=== PATIENT | male | born 1955 | race Caucasian/White ===

== ENCOUNTER → 2018-10-03 09:33 | Outpatient (CLI) | payer MEDICARE, BC, SELFPAY ==
--- NOTE | 2018-10-03 | DI.US.S_ITS ---
PROCEDURE: US ABDOMEN COMPLETE INDICATIONS: ABNORMAL RESULTS OF LIVER TECHNIQUE: Real-time scanning was performed of the abdominal and retroperitoneal organs, with image documentation. COMPARISON: None. FINDINGS: Liver: The liver demonstrates normal size. The liver demonstrates generalized increased echogenicity. This decreases ultrasound sensitivity for detection of hepatic masses. There is apparent focal fatty sparing seen adjacent to the gallbladder. Gallbladder: A non-mobile stone can be seen in the gallbladder neck that measures 1.2 cm. A polyp versus an adherent stone can be seen on the posterior wall of the gallbladder that measures 0.5 cm. The gallbladder wall is not thickened, measuring 3 mm or less. No specific pericholecystic fluid is seen. The sonographic Plascencia sign is negative. Biliary ducts: Intrahepatic bile ducts are non-dilated. Extrahepatic bile duct caliber measures 5 mm. Normal is 6-7 mm or less in diameter, or 10 mm or less post-cholecystectomy. Pancreas: Visualized portions of the pancreas are sonographically normal. Spleen: Spleen is normal in size and homogeneous in echotexture. Kidneys: Kidneys are normal in size and echotexture. Right kidney measures 12.8 cm long; left kidney measures 13.1 cm long. No hydronephrosis or nephrolithiasis. No solid masses. The renal cortex measures within normal limits for thickness. Aorta: Visualized aorta is normal in caliber at less than 3 cm. Iliacs: Proximal common iliac arteries are normal in caliber at less than 2.5 cm. IVC: Intrahepatic inferior vena cava is patent. Miscellaneous: No free abdominal fluid. IMPRESSION: Gallstones, without additional sonographic signs of cholecystitis. No biliary dilatation. The liver demonstrates increased echogenicity. This finding is nonspecific, yet it is attributed to fatty infiltration, with fatty sparing adjacent to the gallbladder fossa. Dictated by: Russ Andres M.D. on 10/03/2018 at 9:37 Approved by: Russ Andres M.D. on 10/03/2018 at 9:40
== END ==
PROVIDERS: Visit Provider Internal Medicine
DX: K80.80 Other cholelithiasis without obstruction (principal); K76.0 Fatty (change of) liver, not elsewhere classified; R79.89 Other specified abnormal findings of blood chemistry
CPT/HCPCS: 76700

== ENCOUNTER → 2021-01-18 19:10 | Outpatient (ROUT) | payer MEDICARE, BC, SELFPAY ==
[2021-01-18 19:32] LABS: Aspartate Aminotransferase 54 IU/L (17-59); BUN Creatinine Ratio 17.6 (6-22); Blood Urea Nitrogen 19 mg/dL (9-20); Calcium 11.5 mg/dL (8.4-10.2); Carbon Dioxide 29 mmol/L (22-32); Chloride 99 mmol/L (98-107); Cholesterol 205 mg/dL (140-199); Estimated Glomerular Filt Rate > 60.0 mL/min (>60); Glucose 104 mg/dL (80-110); HDL Cholesterol 56 mg/dL (40-60); HEMOLYSIS 26 (0-50); Potassium 4.2 mmol/L (3.4-5.1); Sodium 138 mmol/L (137-145); Triglycerides 487 mg/dL (35-150)
[2021-01-18 19:34] LABS: Hemoglobin A1C% w Est Avg Glu 6.4 % (4.0-6.0)
== END ==
PROVIDERS: Visit Provider Internal Medicine
DX: C61 Malignant neoplasm of prostate (principal); I10 Essential (primary) hypertension; E78.2 Mixed hyperlipidemia; R73.01 Impaired fasting glucose
CPT/HCPCS: 80048; 80061; 83036; 84153; 84450

== ENCOUNTER 2021-11-23 15:19 | Emergency (ER) | payer MEDICARE, BC, SELFPAY ==
[2021-11-23] VITALS (7 sets, daily range): BP systolic 133–142; BP diastolic 72–84; PULSE 60–70; RESP 12–22; TEMP 36.9; O2SAT 94–96
--- NOTE | 2021-11-23 15:23 | DI.RAD.S_ITS ---
PROCEDURE: XR CHEST 1V INDICATIONS: chest pain TECHNIQUE: One view of the chest was acquired. COMPARISON: None. FINDINGS: Surgical changes and devices: None. Lungs and pleura: Lungs are clear. No pleural effusions or pneumothorax. Mediastinum: Mediastinal contours appear normal. Heart size is normal. Bones and chest wall: No suspicious bony lesions. Overlying soft tissues appear unremarkable. IMPRESSION: No acute cardiopulmonary findings Approved by: Bharathi Salgado M.D. on 11/23/2021 at 14:45
[2021-11-23 15:46] LABS: Add Manual Diff / Slide Review NO; Basophils Absolute Auto 100 /uL (0-100); Basophils Percent Auto 1.3 % (0-2); Eosinophils Absolute Auto 200 /uL (0-450); Eosinophils Percent Auto 2.8 % (2-4); Hematocrit 48.4 % (41-53); Hemoglobin 16.7 g/dL (13.5-17.5); Lymphocytes Absolute Auto 1500 /uL (1100-4500); Lymphocytes Percent Auto 27.4 % (25-40); Mean Corpuscular HGB Conc 34.5 % (30-36); Mean Corpuscular Hemoglobin 28.9 PG (26-34); Monocytes Absolute Auto 400 /uL (0-900); Monocytes Percent Auto 7.7 % (3-14); Neutrophils Absolute Auto 3300 /uL (1500-7000); Neutrophils Percent Auto 60.8 % (50-75); Platelet Count 165 X10^3/uL (150-400); Red Blood Cell Count 5.77 X10^6/uL (4.5-5.9); Red Cell Distribution Width 13.8 % (11.6-14.8); White Blood Cell Count 5.4 X10^3/uL (4.5-11.0)
[2021-11-23 16:02] LABS: Alanine Aminotransferase 114 IU/L (<50); Albumin 4.9 g/dL (3.5-5.0); Albumin Globulin Ratio 1.9 (1.0-2.8); Alkaline Phosphatase 49 U/L (38-126); Aspartate Aminotransferase 83 IU/L (17-59); BUN Creatinine Ratio 22.2 (6-22); Bilirubin Total 0.6 mg/dL (0.2-1.3); Blood Urea Nitrogen 24 mg/dL (9-20); Calcium 9.5 mg/dL (8.4-10.2); Carbon Dioxide 25 mmol/L (22-32); Chloride 99 mmol/L (98-107); Creatine Kinase 107 U/L (55-170); Estimated Glomerular Filt Rate > 60.0 mL/min (>60); Globulin 2.6 g/dL (1.7-4.1); Glucose 139 mg/dL (80-110); HEMOLYSIS 16 (0-50); Lipase 423 U/L (23-300); Potassium 3.7 mmol/L (3.4-5.1); Sodium 139 mmol/L (137-145); Total Protein 7.5 g/dL (6.3-8.2)
[2021-11-23 16:14] LABS: Troponin I < 0.012 ng/mL (0.01-0.034)
[2021-11-23 16:17] LABS: Creatine Kinase MB 1.02 ng/mL (<2.37)
--- NOTE | 2021-11-23 16:49 | ED.CHESTPAIN ---
HPI - Chest Pain General Chief Complaint: Chest Pain Stated Complaint: chest pain Time Seen by Provider: 11/23/21 16:49 Source: patient Mode of arrival: Ambulatory History of Present Illness HPI narrative: 66M nonsmoker with history of hypertension, hyperlipidemia and diabetes presents with a chief complaint of ongoing brief episodes of left upper anterior chest pain which have been going on for many months. He has had multiple evaluations without any significant findings. 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 and incoordination with primary care provider he is set up to have a stress test and the next few weeks. He is here today because he wanted to be sure that this episode of chest pain which had resolved long before he arrived lasted 15-20 seconds was not something significant. He denies any obvious provocation or palliation. He denies any radiation. He states that sharp and stabbing and seemed to go a cardiac likely, just like prior episodes. He denies associated symptoms such as dizziness, weakness, lightheadedness. He has had no fever or chills nor nausea, vomiting or diarrhea. Denies recent travel, history of blood clot or known cancer. Related Data Home Medications Medication Instructions Recorded Confirmed lisinopril 20 1 tab PO BID 04/27/21 11/15/21 mg-hydrochlorothiazide 25 mg tablet metformin PO BID 04/27/21 11/15/21 rosuvastatin 5 mg tablet 5 mg PO DAILY 04/27/21 11/15/21 DreamStation 2 11/15/21 11/15/21 thyroid (pork) 90 mg tablet 90 mg PO DAILY 11/15/21 11/15/21 ([facility] Thyroid) Allergies Allergy/AdvReac Type Severity Reaction Status Date / Time BANANAS Allergy Intermediate RAW Uncoded 04/27/21 09:14 MOUTH, ITCHING CARROTS Allergy Intermediate RAW Uncoded 04/27/21 09:14 MOUTH, ITCHING MELON Allergy Intermediate RAW Uncoded 04/27/21 09:14 MOUTH,ITCHING Review of Systems Review of Systems Narrative: GENERAL: Denies chills, fatigue, malaise, fever, sweats. HEENT: Denies sinus pain, ear pain, sore throat, difficulty swallowing, dizziness. RESPIRATORY: Denies dyspnea, cough, wheezing, hemoptysis, sputum. CARDIOVASCULAR: See HPI GASTROINTESTINAL: Denies nausea, vomiting, abdominal pain, diarrhea, constipation, melena. : Denies dysuria, frequency, incontinence, hematuria, urinary retention. MUSCULOSKELETAL: denies weakness, joint pain, or bony pain SKIN: Denies rash, skin lesions, or other NEUROLOGIC: Denies weakness, headache, numbness, change in speech, confusion, seizures, incoordination. PSYCHIATRIC: No concerning psychosocial issues. 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 Well-developed patient, in mild distress. HEAD: Atraumatic. Normocephalic. EYES: Pupils equal round and reactive. Extraocular motions intact. No scleral icterus. No injection or drainage. ENT: Nose without bleeding, purulent drainage. Throat without erythema, tonsillar hypertrophy or exudate. Airway patent. NECK: Trachea midline. Non tender CARDIOVASCULAR: Regular rate and rhythm without murmurs, gallops, or rubs. RESPIRATORY: Clear to auscultation. Breath sounds equal bilaterally. No wheezes, rales, or rhonchi. GASTROINTESTINAL: Abdomen soft, non-tender, nondistended. EXTREMITIES: No edema or joint tenderness. BACK: Nontender without deformity or crepitance. No flank tenderness. NEURO: AOx3. SKIN: No rash or erythema of visible areas Initial Vital Signs Initial Vital Signs: Vital Signs Temperature 98.5 F 11/23/21 15:20 Pulse Rate 68 11/23/21 15:20 Respiratory Rate 22 11/23/21 15:20 Blood Pressure 134/84 11/23/21 15:20 Pulse Oximetry 96 11/23/21 15:20 Course Orders Ordered: ED Orders 11/23/21 15:23 XR chest 1V Stat EKG-12 Lead Stat 11/23/21 15:33 Complete Blood Count AUTO DIFF Stat Comprehensive Metabolic Panel Stat Lipase Stat Magnesium Stat Troponin & CK Cardiac Panel Stat 11/23/21 18:03 D Dimer Stat Vital Signs Vital signs: Vital Signs - 8 hr 11/23/21 15:20 11/23/21 16:50 11/23/21 16:53 Temperature 98.5 F Pulse Rate 68 70 65 Respiratory Rate 22 16 20 Blood Pressure 134/84 137/79 137/79 Pulse Oximetry 96 96 95 11/23/21 17:00 11/23/21 17:30 Temperature Pulse Rate 67 65 Respiratory Rate 19 12 Blood Pressure 142/84 H 134/73 Pulse Oximetry 96 96 MDM - Chest Pain Lab Data Result diagrams: 11/23/21 15:33 11/23/21 15:33 Labs: Lab Results 11/23/21 11/23/21 Range/Units 15:33 15:33 WBC 5.4 (4.5-11.0) X10^3/uL RBC 5.77 (4.5-5.9) X10^6/uL Hgb 16.7 (13.5-17.5) g/dL Hct 48.4 (41-53) % MCV 84.0 (80-100) fL MCH 28.9 (26-34) PG MCHC 34.5 (30-36) % RDW 13.8 (11.6-14.8) % Plt Count 165 (150-400) X10^3/uL Neut % (Auto) 60.8 (50-75) % Lymph % (Auto) 27.4 (25-40) % [place] % (Auto) 7.7 (3-14) % Eos % (Auto) 2.8 (2-4) % Baso % (Auto) 1.3 (0-2) % Neut # (Auto) 3300 (9160-8601) /uL Lymph # (Auto) 1500 (3843-3237) /uL [place] # (Auto) 400 (0-900) /uL Eos # (Auto) 200 (0-450) /uL Baso # (Auto) 100 (0-100) /uL Sodium 139 (137-145) mmol/L Potassium 3.7 (3.4-5.1) mmol/L Chloride 99 (98-107) mmol/L Carbon Dioxide 25 (22-32) mmol/L BUN 24 H (9-20) mg/dL Creatinine 1.08 (0.66-1.25) mg/dL Estimated GFR > 60.0 (>60) mL/min BUN/Creatinine Ratio 22.2 H (6-22) Glucose 139 H (80-110) mg/dL Calcium 9.5 (8.4-10.2) mg/dL Magnesium 2.0 (1.6-2.3) mg/dL Total Bilirubin 0.6 (0.2-1.3) mg/dL AST 83 H (17-59) IU/L ALT 114 H (<50) IU/L Alkaline Phosphatase 49 (38-126) U/L Total Creatine Kinase 107 (55-170) U/L CK-MB (CK-2) 1.02 (<2.37) ng/mL CK-MB (CK-2) Rel Index 1.0 L (1.5-5.0) % Troponin I < 0.012 (0.01-0.034) ng/mL Total Protein 7.5 (6.3-8.2) g/dL Albumin 4.9 (3.5-5.0) g/dL Globulin 2.6 (1.7-4.1) g/dL Albumin/Globulin Ratio 1.9 (1.0-2.8) Lipase 423 H (23-300) U/L Imaging Data Chest x-ray: Radiologist's Impression: [address] [address] XRay Report Signed Patient: Percy Karimi MR#: [id number] : 1955 Acct:[id number] Age/Sex: 66 / M Date of Service: 11/23/21 Loc: ED Accession Number: [id number] ?? Procedure: XR chest 1V Ordering Provider: Martell Ding D.O. PROCEDURE:? XR CHEST 1V ? INDICATIONS:? chest pain ? TECHNIQUE:? One view of the chest was acquired.? ? COMPARISON:? None. ? FINDINGS:? ? Surgical changes and devices:? None.? ? Lungs and pleura:? Lungs are clear.? No pleural effusions or pneumothorax.? ? Mediastinum:? Mediastinal contours appear normal.? Heart size is normal.? ? Bones and chest wall:? No suspicious bony lesions.? Overlying soft tissues appear unremarkable.? ? IMPRESSION:? No acute cardiopulmonary findings ? ? ? Approved by: Bharathi Salgado M.D. on 11/23/2021 at 14:45? MDM Narrative Medical decision making narrative: Multiple causes of chest pain considered including CO, PE, pneumothorax, pneumonia, aortic dissection, and pleurisy. Patient reports no radiation, no diaphoresis, no provocation with exertion, and no vomiting Findings and discharge diagnosis discussed with patient/family followed by verbalization of understanding Return precautions discussed with patient/family whom verbalize understanding. Discharge Plan Departure Patient Disposition: Home Clinical Impression: Atypical chest pain Instructions: DI for Atypical Chest Pain Activity Restrictions/Additional Instructions: *You have been diagnosed with [atypical chest pain. Your history and physical exam are very reassuring. As we discussed there are no ischemic findings on your EKG, labs are reassuring and there is no suggestion of blood clot. *What to do: *Please continue to take your regular medications as directed. [ ] New medication prescriptions sent to your pharmacy: [ ] [ ] New medication written as a paper prescription [ x] No new medications given *Please follow up with your primary care provider in 2-3 days, call for an appointment. Let them know you were seen in the Emergency Department and that we ask that you be seen in follow up. We will electronically transmit a record of today's note if your PCP is in our system *If you do not have a primary care provider please contact the [facility] Resource line at [phone]. They will ask some questions about your medical history and help get you set up with a doctor in the community. *Return to Emergency Department if you should have any new, worsening or concerning symptoms, such as [fever greater than 101 F, shaking chills, worsening pain, persistent vomiting or other bothersome symptoms] Prescriptions: No Action thyroid (pork) [[place] Thyroid] 90 mg tablet 90 mg PO DAILY 0RF (DME) DreamStation 2 See Rx Instructions .ROUTE .MEDSUPPLY 0RF Rx Instructions: CPAP Min: 6 Max: 14 DME: [place] rosuvastatin 5 mg tablet 5 mg PO DAILY 0RF metformin PO BID 0RF lisinopril-hydrochlorothiazide 20-25 mg tablet 1 tab PO BID 0RF
[2021-11-23 18:41] LABS: D Dimer < 200 ng/mL (<230)
== END 2021-11-23 18:50 | disposition home or self-care (01) ==
PROVIDERS: Emergency Provider Emergency Medicine
DX: R07.89 Other chest pain (principal)
CPT/HCPCS: 36415; 71045; 80053; 82550; 82553; 83690; 83735; 84484; 85025; 85379; 93005; 93010; 99283; 99284

== ENCOUNTER → 2022-02-01 08:33 | Outpatient (CLI) | payer MEDICARE, OTHER, SELFPAY ==
[2022-02-01 11:10] LABS: BUN Creatinine Ratio 16.3 (6-22); Blood Urea Nitrogen 16 mg/dL (9-20); Calcium 9.1 mg/dL (8.4-10.2); Carbon Dioxide 25 mmol/L (22-32); Chloride 105 mmol/L (98-107); Estimated Glomerular Filt Rate > 60 mL/min (>60); Glucose 134 mg/dL (80-110); HEMOLYSIS < 15 (0-50); Potassium 3.6 mmol/L (3.4-5.1); Sodium 138 mmol/L (137-145)
== END ==
PROVIDERS: PCP Internal Medicine; Referring Provider Urology; Visit Provider Urology
DX: C61 Malignant neoplasm of prostate (principal); R97.20 Elevated prostate specific antigen [PSA]
CPT/HCPCS: 36415; 80048

== ENCOUNTER → 2022-02-02 08:28 | Outpatient (CLI) | payer MEDICARE, OTHER, SELFPAY ==
--- NOTE | 2022-02-02 08:30 | DI.MRI.S_ITS ---
PROCEDURE: MR PELIS WO/W CON INDICATIONS: Prostate cancer rising PSA TECHNIQUE: Coronal HASTE, axial T1 FSE with fat saturation, 3-plane nonbreath-hold T2 FSE. After the administration of contrast, dynamic axial, delayed axial and coronal VIBE or 2-D FLASH with fat saturation through the pelvis. Optional diffusion weighted imaging and ADC may be performed. COMPARISON: [facility], CT, CT ABDOMEN PELVIS WO/W CON, 02/02/2022, 8:38. FINDINGS: Image quality: Diffusion weighted and dynamic contrast enhanced images are diagnostic. Prostate: Gland size is 5.3 x 4.9 x 4.3 cm; ellipsoid gland volume is 58 mL. No significant foci of intrinsic T1 hyperintensity to suggest hemorrhage. Multiple BPH nodules. Lesion size(s): Lesion 1: 1.2 x 1.1 cm, (11/23) Lesion location(s) (sector): Lesion 1: Left peripheral zone mid gland Lesion description: Lesion 1: Oval T2 weighted imaging (T2WI) morphology score: Lesion 1: 4 Diffusion weighted imaging (DWI) morphology score: Lesion 1: 4 Dynamic contrast enhancement (DCE): Lesion 1: Present Lesion PI-RADS score: Lesion 1: PI-RADS 4 Genitourinary system: Bladder wall thickness is normal. Distal ureters are non distended. Bowel and peritoneum: No pathologic free pelvic fluid. Inferior colon and small bowel loops are normal in caliber. Nodes and vessels: No pelvic or inguinal adenopathy by size criteria. Iliac vessels are normal in caliber. Soft tissues: No inguinal hernias. Bones: Marrow demonstrates normal overall signal, without lesions to suggest metastases. IMPRESSION: 1. Prostatomegaly with multiple BPH nodules. 2. Left peripheral zone mid gland observation measuring 1.2 cm. PI-RADS 4. 3. No enlarged lymph nodes. Dictated by: Milo Deluca M.D. on 02/02/2022 at 10:54 Approved by: Milo Deluca M.D. on 02/02/2022 at 11:04
--- NOTE | 2022-02-02 08:38 | DI.CT.S_ITS ---
PROCEDURE: CT ABDOMEN PELVIS WO/W CON INDICATIONS: Prostate cancer rising PSA TECHNIQUE: After the administration of oral contrast, 5 mm thick sections acquired from the diaphragms to the iliac crests. After the administration of intravenous contrast, 5 mm thick sections acquired from the diaphragms to the symphysis. 5 mm thick coronal and sagittal reformats were acquired. For radiation dose reduction, the following was used: automated exposure control, adjustment of mA and/or kV according to patient size. COMPARISON: [facility], , MR PELVIS WO/W CON, 02/02/2022, 9:11. FINDINGS: Lower thorax: The lung bases are clear. Heart size normal. No hiatal hernia. Dense coronary artery vascular calcification present. Liver: Normal in size and attenuation. No contour deformity present. Biliary system: Calcified stone noted layering dependently in the gallbladder lumen. No intra or extrahepatic bile duct dilatation. Pancreas: Unremarkable without mass or inflammation evident. Spleen: The spleen is enlarged at 14.5 cm. No intrinsic mass lesion. Adrenals: Normal morphology and density. Reproductive system: Prostatic hypertrophy elevates the bladder floor. Urinary system: Normal renal size and attenuation. No renal calculi, hydronephrosis, or solid mass present. Urinary bladder unremarkable. Gastrointestinal system: The bowel is unremarkable without evidence of bowel obstruction or inflammation. The stomach appears unremarkable. Appendix: No findings to suggest acute appendicitis. Peritoneal spaces: No mesenteric or retroperitoneal adenopathy. No free air. No free fluid. Vasculature: Aortic atherosclerotic vascular calcification noted without evidence of aneurysm. Abdominal wall: Periumbilical ventral hernia contains fat without bowel involvement Musculoskeletal: Normal bone mineralization. Degenerative disc disease and arthropathy noted in lower lumbar spine. No lytic or blastic osseous lesion No acute fractures. IMPRESSION: 1. Prostatic hypertrophy without evidence metastatic disease. 2. Cholelithiasis without CT evidence of acute cholecystitis. 3. Incidental splenomegaly, 14.5 cm Approved by: Bharathi Salgado M.D. on 02/02/2022 at 12:26
== END ==
PROVIDERS: PCP Internal Medicine; Referring Provider Urology; Visit Provider Urology
DX: C61 Malignant neoplasm of prostate (principal); R97.20 Elevated prostate specific antigen [PSA]; D40.0 Neoplasm of uncertain behavior of prostate; N40.0 Benign prostatic hyperplasia without lower urinary tract symptoms; K80.20 Calculus of gallbladder without cholecystitis without obstruction; R16.1 Splenomegaly, not elsewhere classified
CPT/HCPCS: 72197; 74178; A9579

== ENCOUNTER → 2022-02-22 10:52 | Outpatient (CLI) | payer MEDICARE, OTHER, SELFPAY ==
--- NOTE | 2022-02-22 10:54 | DI.NM.S_ITS ---
PROCEDURE: NM BONE SCAN WHOLE BODY RADIOPHARMACEUTICAL: 20.2 mCi Tc-99m MDP IV. INDICATIONS: Prostate cancer rising PSA TECHNIQUE: Delayed whole-body scintigrams were obtained approximately 3-4 hours after intravenous injection of radiotracer. Anterior and posterior views were acquired from vertex to feet. Additional left and right oblique views of the pelvis were obtained. COMPARISON: [facility], MR, MR PELVIS WO/W CON, 02/02/2022, 9:11. [facility], CT, CT ABDOMEN PELVIS WO/W CON, 02/02/2022, 8:38. FINDINGS: Physiologic uptake is noted within the kidneys and bladder. There is increased uptake at the 1st CMC joints bilaterally suggestive of degenerative change. Photopenia is noted at the right knee consistent with arthroplasty. Mild increased uptake is noted within the shoulder girdles as well as small bones of the feet. Small punctate areas of uptake are noted overlying the visualized portions of the thoracolumbar spine. IMPRESSION: No definitive foci for metastatic disease. Multiple areas of uptake are noted suggestive of degenerative change. Dictated by: Brittany Edwards M.D. on 02/22/2022 at 17:15 Approved by: Brittany Edwards M.D. on 02/22/2022 at 17:16
== END ==
PROVIDERS: PCP Internal Medicine; Referring Provider Urology; Visit Provider Urology
DX: C61 Malignant neoplasm of prostate (principal); R97.20 Elevated prostate specific antigen [PSA]
CPT/HCPCS: 78306; A9503

== ENCOUNTER → 2022-06-08 08:22 | Outpatient (CLI) | payer MEDICARE, OTHER, SELFPAY ==
[2022-06-08 09:51] LABS: Prostate Specific Antigen 8.22 ng/mL (0.10-4.00)
[2022-06-09 07:10] LABS: PSA Free % 21.4 % (.); PSA, Total 8.4 ng/mL (0.0-4.0)
[2022-06-14 17:57] LABS: Dihydrotestosterone 93 ng/dL (.)
[2022-06-15 08:12] LABS: Testosterone Free 16.65 ng/dL (5.00-21.00)
[2022-06-15 14:42] LABS: Estrogen 122 pg/mL (56-213)
== END ==
PROVIDERS: Urology; PCP Internal Medicine; Referring Provider Naturopath; Visit Provider Naturopath
DX: C61 Malignant neoplasm of prostate (principal); R97.20 Elevated prostate specific antigen [PSA]
CPT/HCPCS: 36415; 82642; 82672; 84153; 84154; 84402; 84403

== ENCOUNTER → 2022-07-04 08:12 | Outpatient (CLI) | payer MEDICARE, OTHER, SELFPAY ==
[2022-07-04 10:43] LABS: Testosterone 1010 ng/dL (71.8-623)
== END ==
PROVIDERS: PCP Internal Medicine; Referring Provider Urology; Visit Provider Urology
DX: E29.1 Testicular hypofunction (principal)
CPT/HCPCS: 36415; 84403

== ENCOUNTER → 2022-07-12 08:18 | Outpatient (CLI) | payer MEDICARE, OTHER, SELFPAY ==
[2022-07-12 10:47] LABS: Testosterone 768 ng/dL (71.8-623)
== END ==
PROVIDERS: PCP Internal Medicine; Referring Provider Urology; Visit Provider Urology
DX: C61 Malignant neoplasm of prostate (principal); N52.01 Erectile dysfunction due to arterial insufficiency; R97.20 Elevated prostate specific antigen [PSA]
CPT/HCPCS: 36415; 84403

== ENCOUNTER → 2022-09-16 08:49 | Outpatient (CLI) | payer MEDICARE, OTHER, SELFPAY ==
[2022-09-16 12:13] LABS: Prostate Specific Antigen 8.88 ng/mL (0.10-4.00)
== END ==
PROVIDERS: PCP Internal Medicine; Referring Provider Urology; Visit Provider Urology
DX: C61 Malignant neoplasm of prostate (principal); R97.20 Elevated prostate specific antigen [PSA]
CPT/HCPCS: 84153

== ENCOUNTER → 2022-10-07 08:50 | Outpatient (CLI) | payer MEDICARE, OTHER, SELFPAY ==
[2022-10-07 10:13] LABS: Prolactin 9.2 ng/mL (3.7-17.9)
[2022-10-07 10:16] LABS: Follicle Stimulating Hormone 10.3 mIU/mL; Luteinizing Hormone 5.02 mIU/mL
[2022-10-07 10:30] LABS: Testosterone 814 ng/dL (71.8-623)
[2022-10-07 10:31] LABS: Estradiol, Total 28.5 pg/mL
== END ==
PROVIDERS: PCP Internal Medicine; Referring Provider Urology; Visit Provider Urology
DX: R79.89 Other specified abnormal findings of blood chemistry (principal)
CPT/HCPCS: 36415; 82670; 83001; 83002; 84146; 84403

== ENCOUNTER → 2022-11-15 10:15 | Outpatient (CLI) | payer MEDICARE, OTHER, SELFPAY ==
[2022-11-15 11:27] LABS: Alanine Aminotransferase 90 IU/L (<50); Albumin 4.6 g/dL (3.5-5.0); Albumin Globulin Ratio 1.6 (1.0-2.8); Alkaline Phosphatase 61 U/L (38-126); Aspartate Aminotransferase 56 IU/L (17-59); BUN Creatinine Ratio 19.2 (6-22); Bilirubin Total 0.8 mg/dL (0.2-1.3); Blood Urea Nitrogen 19 mg/dL (9-20); Calcium 9.6 mg/dL (8.4-10.2); Carbon Dioxide 31 mmol/L (22-32); Chloride 97 mmol/L (98-107); Estimated Glomerular Filt Rate > 60 mL/min (>60); Globulin 2.9 g/dL (1.7-4.1); Glucose 139 mg/dL (80-110); HEMOLYSIS < 15 (0-50); Magnesium 1.8 mg/dL (1.6-2.3); Potassium 3.9 mmol/L (3.4-5.1); Sodium 137 mmol/L (137-145); Total Protein 7.5 g/dL (6.3-8.2)
[2022-11-15 11:52] LABS: Thyroid Stimulating Hormone 1.24 uIU/mL (0.47-4.68)
[2022-11-17 08:44] LABS: Cholesterol 278 mg/dL (140-199); HDL Cholesterol 49 mg/dL (40-60); Triglycerides 466 mg/dL (35-150)
[2022-11-18 11:34] LABS: Cholesterol, Total 277 mg/dL (100-199); HDL-Cholesterol 44 mg/dL (>39); HDL-Particle (Total) 41.4 umol/L (>=30.5); LDL Particle 2547 nmol/L (<1000); LDL Size 19.6 nm (>20.5); LDL-Cholsterol 140 mg/dL (0-99); LP-IR Score 72 (<=45); Small LDL- Particle 1780 nmol/L (<=527); Triglycerides 502 mg/dL (0-149)
== END ==
PROVIDERS: PCP Internal Medicine; Referring Provider Specialist; Visit Provider Specialist
DX: I10 Essential (primary) hypertension (principal); E78.2 Mixed hyperlipidemia
CPT/HCPCS: 36415; 80053; 80061; 83704; 83735; 84443

== ENCOUNTER → 2023-01-26 07:51 | Outpatient (CLI) | payer MEDICARE, OTHER, SELFPAY ==
[2023-01-26 09:01] LABS: Prolactin 13.6 ng/mL (3.7-17.9)
[2023-01-26 09:09] LABS: Follicle Stimulating Hormone 12.4 mIU/mL
[2023-01-26 09:16] LABS: Prostate Specific Antigen 9.49 ng/mL (0.10-4.00)
[2023-01-26 09:18] LABS: Testosterone 871 ng/dL (71.8-623)
[2023-01-26 09:25] LABS: Estradiol, Total 42.3 pg/mL
== END ==
PROVIDERS: PCP Internal Medicine; Referring Provider Urology; Visit Provider Urology
DX: R97.20 Elevated prostate specific antigen [PSA] (principal); R79.89 Other specified abnormal findings of blood chemistry; C61 Malignant neoplasm of prostate
CPT/HCPCS: 36415; 82670; 83001; 83002; 84146; 84153; 84403

== ENCOUNTER → 2023-02-02 08:21 | Outpatient (CLI) | payer MEDICARE, OTHER, SELFPAY ==
[2023-02-02 10:43] LABS: Alanine Aminotransferase 87 IU/L (<50); Albumin 4.2 g/dL (3.5-5.0); Albumin Globulin Ratio 1.9 (1.0-2.8); Alkaline Phosphatase 57 U/L (38-126); Aspartate Aminotransferase 58 IU/L (17-59); BUN Creatinine Ratio 19.8 (6-22); Bilirubin Total 0.8 mg/dL (0.2-1.3); Blood Urea Nitrogen 18 mg/dL (9-20); Carbon Dioxide 28 mmol/L (22-32); Chloride 101 mmol/L (98-107); Estimated Glomerular Filt Rate > 60 mL/min (>60); Globulin 2.2 g/dL (1.7-4.1); Glucose 135 mg/dL (80-110); HEMOLYSIS < 15 (0-50); Potassium 3.8 mmol/L (3.4-5.1); Sodium 137 mmol/L (137-145); Total Protein 6.4 g/dL (6.3-8.2)
[2023-02-06 11:52] LABS: Cholesterol, Total 151 mg/dL (100-199); HDL-Cholesterol 48 mg/dL (>39); LDL Particle 763 nmol/L (<1000); LDL Size 19.9 nm (>20.5); LDL-Cholsterol 59 mg/dL (0-99); LP-IR Score 47 (<=45); Small LDL- Particle 496 nmol/L (<=527); Triglycerides 279 mg/dL (0-149)
== END ==
PROVIDERS: PCP Internal Medicine; Referring Provider Specialist; Visit Provider Specialist
DX: E78.2 Mixed hyperlipidemia (principal); R79.89 Other specified abnormal findings of blood chemistry
CPT/HCPCS: 36415; 80053; 80061; 83704

== ENCOUNTER 2023-03-30 08:58 | Day surgery (SDC) | payer MEDICARE, OTHER, SELFPAY ==
--- NOTE | 2023-03-30 | PATH_ITS ---
[facility] Accession Number: [id number] No. of containers..03 Tissue . 01 Material submitted: . PART A: colon - ASCENDING POLYPS PART B: colon - SIGMOID POLYP PART C: rectum - RECTAL POLYP . 01 Diagnosis: A-COLON, ASCENDING, POLYPS BIOPSIES: MULTIPLE FRAGMENTS OF TUBULAR ADENOMA/S - B-COLON, SIGMOID, POLYP BIOPSY: BENIGN COLONIC MUCOSA WITH BENIGN LYMPHOID AGGREGATE. - C-COLON, RECTUM, POLYP BIOPSY: BENIGN COLONIC MUCOSA WITH BENIGN LYMPHOID AGGREGATE AND FOCAL HYPERPLASTIC CHANGES. TXN 04/11/2023 1615 Local . 01 Electronically signed: . Vasquez Lay MD, Pathologist NPI- [id number] . 01 Gross description: . Part A: ASCENDING POLYPS: Received in formalin is 4 fragment(s) of leggett, soft tissue measuring 1.0 x 0.7 x 0.2 cm to 0.2 x 0.2 x 0.1 cm submitted entirely in 1 cassette(s) Part B: SIGMOID POLYP: Received in formalin is 1 fragment(s) of leggett, soft tissue measuring 0.3 x 0.2 x 0.1 cm submitted entirely in 1 cassette(s) Part C: RECTAL POLYP: Received in formalin is 1 fragment(s) of leggett, soft tissue measuring 0.9 x 0.5 x 0.1 cm submitted entirely in 1 cassette(s) /AAY 04/04/2023 0716 Local . 01 Pathologist provided ICD-10: Z12.11 . 01 CPT . 315126, 337328, [id number] Specimen Comment: A courtesy copy of this report has been sent to [facility] Pathology Performed at: 01 [facility] [address] [place] [address] [address], [place], [place] [id number] MD Devan Barr MD Phone: [phone]
[2023-03-30 09:17] VITALS: BP 167/82; PULSE 61; RESP 16; TEMP 36.2; O2SAT 94; BMI 28.7
[2023-03-30] MEDS: LACTATED RINGERS 1,000 ML 84 ML IV (09:31)
--- NOTE | 2023-03-30 10:12 | P.HP_ITS ---
History of Present Illness History of Present Illness Date Patient Seen: 03/30/23 Time Patient Seen: 10:12 Chief complaint: Dx Colonoscopy Narrative: Percy is a 68-year-old man who is here for a colonoscopy. His last 1 was about 6 or 7 years ago. He has had polyps removed. No known family history of colon cancer. 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 Obesity (BMI 30-39.9) (Unknown) Obstructive sleep apnea of adult Prostate cancer Rising PSA level Snoring Surgical History History of knee replacement Family History Grandfather Cancer Grandmother CVA (cerebral vascular accident) Hypertension Sister Diabetes mellitus Father Hyperlipidemia Hypertension Social History marital status: number of children: 2 household members: spouse Smoking Status: Never smoker alcohol intake: never caffeine: Yes Type(s) of exercise: walking frequency: 3-4 times per week duration: 60-90 minutes/day Meds Home Medications and Allergies Home Medications Medication Instructions Recorded Confirmed Type lisinopril 20 1 tab PO BID 04/27/21 02/02/23 History mg-hydrochlorothiazide 25 mg tablet rosuvastatin 5 mg tablet 5 mg PO DAILY 04/27/21 03/30/23 History DreamStation 2 11/15/21 02/02/23 History sodium,potassium,mag sulfates 17.5 See Rx Instructions PO .COMPLEX 02/13/23 Rx gram-3.13 gram-1.6 gram oral soln #354 mL (Suprep Bowel Prep Kit) ezetimibe 10 mg tablet 10 mg PO DAILY 03/30/23 03/30/23 History lisinopril 20 2 tab PO DAILY 03/30/23 03/30/23 History mg-hydrochlorothiazide 12.5 mg tablet metformin 500 mg tablet 500 mg PO DAILY 03/30/23 03/30/23 History thyroid (pork) 60 mg tablet 60 mg PO DAILY 03/30/23 03/30/23 History ([place] Thyroid) Allergies Allergy/AdvReac Type Severity Reaction Status Date / Time atorvastatin [From Lipitor] Allergy Unknown Verified 03/30/23 09:10 simvastatin Allergy Unknown Verified 03/30/23 09:10 Exam Vital Signs (past 8 hours): - 03/30/23 09:17 Temperature 97.1 F L Pulse Rate 61 Respiratory Rate 16 Blood Pressure 167/82 H Pulse Oximetry 94 Oxygen Delivery Method Room Air Oxygen Delivery Method Room Air Const General: healthy appearing Assessment & Plan Assessment and plan (1) Personal history of colonic polyps: Status: Acute Plan We reviewed the risks and benefits of colonoscopy and he would like to proceed.
[2023-03-30 11:24] VITALS: BP 101/54; PULSE 63; RESP 15; TEMP 35.6; O2SAT 97
--- NOTE | 2023-03-30 11:24 | P.OP.COLON_ITS ---
Operative Date/Time/Diagnoses Date of procedure: 03/30/23 Time of procedure: 11:24 Pre-op diagnosis: Colon cancer screening Post-op diagnosis: same Procedure & Clinicians Study performed: Colonoscopy Same procedure as scheduled: Yes Surgeon: Chris De Dios Procedure Notes Procedure in detail: Surgeon: Chris De Dios MD Anesthesia: [place] CRNA Procedure: The patient was brought to the endoscopy suite, placed in left lateral decubitus position. The patient was connected to monitoring devices. A time-out was performed. Sedation was administered. Once the patient was adequately sedated, a digital rectal exam was performed and was normal. The scope was then inserted and advanced to the cecum where the appendiceal orifice was identified and photographed. The scope was then slowly withdrawn over greater than 6 minutes. The mucosa was thoroughly inspected. There were 3 p olyps in the ascending colon, each about 7 mm, all removed with a cold snare and sent together. There was a 5 mm polyp in the sigmoid colon removed with a cold snare. There was a 6 mm polyp in the rectum removed with a cold snare. The scope was retroflexed in the rectum. No other abnormalities were seen. The scope was straightened and removed. The patient was awakened and brought to recovery. Scope withdrawal time: 15 minutes Sedation time: 21 minutes EBL: 5 mL Findings: 3 7 mm polyps in the ascending colon and 5 mm polyp in the sigmoid and a 5 mm polyp in the rectum. Post-procedure Disposition: PACU
[2023-03-30 11:29] VITALS: BP 104/56; PULSE 58; RESP 16; O2SAT 96
[2023-03-30 11:34] VITALS: BP 104/59; PULSE 57; RESP 15; O2SAT 96
[2023-03-30 11:39] VITALS: BP 104/59; PULSE 57; RESP 14; O2SAT 97
[2023-03-30 11:44] VITALS: BP 111/61; PULSE 60; RESP 14; O2SAT 97
== END 2023-03-30 12:08 | disposition home or self-care (01) ==
PROVIDERS: Surgery; PCP Internal Medicine; Referring Provider Surgery; Visit Provider Surgery
PROC: 0DJD8ZZ Inspection of Lower Intestinal Tract, Via Natural or Artificial Opening Endoscopic (ICD-10-PCS; CPT 45378; principal; 2023-03-30 10:15)
DX: Z12.11 Encounter for screening for malignant neoplasm of colon (principal); D12.2 Benign neoplasm of ascending colon
CPT/HCPCS: 45385; J2704

== ENCOUNTER → 2023-09-12 10:32 | Outpatient (CLI) | payer MEDICARE, OTHER, SELFPAY ==
[2023-09-12 12:16] LABS: Prostate Specific Antigen 8.44 ng/mL (0.10-4.00)
== END ==
PROVIDERS: PCP Internal Medicine; Referring Provider Urology; Visit Provider Urology
DX: C61 Malignant neoplasm of prostate (principal); R97.20 Elevated prostate specific antigen [PSA]
CPT/HCPCS: 36415; 84153

== ENCOUNTER → 2024-01-11 07:53 | Outpatient (CLI) | payer MEDICARE, OTHER, SELFPAY ==
[2024-01-11 09:57] LABS: Prostate Specific Antigen 9.66 ng/mL (0.10-4.00)
[2024-01-11 10:00] LABS: Testosterone 784 ng/dL (71.8-623)
== END ==
PROVIDERS: Urology; PCP Internal Medicine; Referring Provider Specialist; Visit Provider Specialist
DX: C61 Malignant neoplasm of prostate (principal); R79.89 Other specified abnormal findings of blood chemistry
CPT/HCPCS: 36415; 84153; 84403

== ENCOUNTER → 2024-01-15 09:42 | Outpatient (CLI) | payer MEDICARE, OTHER, SELFPAY ==
--- NOTE | 2024-01-15 09:43 | DI.US.S_ITS ---
PROCEDURE: US CAROTID DOPPLER BI INDICATIONS: Atherosclerotic heart disease TECHNIQUE: Color and pulse Doppler interrogation was performed of both carotid systems, with image documentation and velocity measurements. COMPARISON: None. FINDINGS: Stenosis calculations are based on SRU (Society of Radi[employer] in Ultras[employer]) criteria. Right side: Brachial blood pressure: 125/65 mm Hg. Common carotid artery peak systolic velocity: 197 cm/sec. Internal carotid artery peak systolic velocity: 161 cm/sec. Internal carotid artery end diastolic velocity: 33 cm/sec. External carotid artery peak systolic velocity: 207 cm/sec. ICA/CCA peak systolic ratio: 1.7 . Sandoval scale imaging description: Atherosclerotic plaque noted the proximal bifurcation. Overall, less than 50% reduction in lumen diameter. There is moderate tortuosity of the internal carotid artery. Percent internal carotid artery stenosis: 50-69% . Vertebral artery: Flow direction is antegrade. Left side: Brachial blood pressure: 125/68 mm Hg. Common carotid artery peak systolic velocity: 81 cm/sec. Internal carotid artery peak systolic velocity: 130 cm/sec. Internal carotid artery end diastolic velocity: 30 cm/sec. External carotid artery peak systolic velocity: 417 cm/sec. ICA/CCA peak systolic ratio: 1.7 . Sandoval scale imaging description: Moderate atherosclerotic calcifications of the distal common carotid artery, proximal internal carotid artery as well as the origin of the external carotid artery. Less than 50% narrowing of the lumen of the common carotid artery and external carotid artery. Percent internal carotid artery stenosis: 50-69% . Vertebral artery: Flow direction is antegrade. IMPRESSION: 1. Moderate left greater than right atherosclerosis with 50-69% stenosis of the bilateral internal carotid arteries. 2. Tortuous vessels of the bilateral carotid arteries, most pronounced in the right proximal common carotid artery with velocity measuring up to 197 cm/sec which may be falsely elevated by vessel tortuosity. Dictated by: Troy Padilla M.D. on 01/17/2024 at 21:58 Approved by: Troy Padilla M.D. on 01/17/2024 at 22:18
== END ==
PROVIDERS: PCP Internal Medicine; Referring Provider Specialist; Visit Provider Specialist
DX: I65.23 Occlusion and stenosis of bilateral carotid arteries (principal); I25.10 Atherosclerotic heart disease of native coronary artery without angina pectoris
CPT/HCPCS: 93880

== ENCOUNTER → 2024-11-13 08:06 | Outpatient (CLI) | payer MEDICARE, OTHER, SELFPAY ==
[2024-11-13 10:13] LABS: Prostate Specific Antigen 11.1 ng/mL (0.10-4.00)
[2024-11-13 10:16] LABS: Testosterone 954 ng/dL (71.8-623)
== END ==
PROVIDERS: PCP Internal Medicine; Referring Provider Urology; Visit Provider Urology
DX: C61 Malignant neoplasm of prostate (principal); R97.20 Elevated prostate specific antigen [PSA]; R79.89 Other specified abnormal findings of blood chemistry; N52.01 Erectile dysfunction due to arterial insufficiency
CPT/HCPCS: 36415; 84153; 84403

== ENCOUNTER → 2024-12-10 14:15 | Outpatient (CLI) | payer MEDICARE, OTHER, SELFPAY ==
--- NOTE | 2024-12-10 14:16 | DI.MRI.S_ITS ---
PROCEDURE: MR PELVIC PROSTATE PROTOCOL INDICATIONS: Prostate cancer rising PSA TECHNIQUE: Coronal HASTE, axial T1 FSE with fat saturation, 3-plane nonbreath-hold T2 FSE. After the administration of contrast, dynamic axial, delayed axial and coronal VIBE or 2-D FLASH with fat saturation through the pelvis. Diffusion weighted imaging and ADC was performed. COMPARISON: None. FINDINGS: Image quality: Diffusion weighted and dynamic contrast enhanced images are diagnostic. Prostate: Gland size is 5.8 x 5.1 x 5.6 cm; ellipsoid gland volume is 86 mL. PSA density: 0.12, low 2 intermediate suspicion. Lesion 1: Location: Left lateral transition zone, mid gland, on axial series 5, image 10 and coronal series 6, image 18. Size: 1.4 x 1.7 cm. T2W signal: Hypointense. DWI signal: Markedly hyperintense. ADC signal: Markedly hypointense. Enhancement: Yes. Extracapsular extension: No. No neurovascular involvement. PI-RADS score: 5 Genitourinary system: Bladder wall is trabeculated. Distal ureters are non distended. Bowel and peritoneum: No pathologic free pelvic fluid. Inferior colon and small bowel loops are normal in caliber. Nodes and vessels: No pelvic or inguinal adenopathy by size criteria. Iliac vessels are normal in caliber. Soft tissues: No inguinal hernias. Bones: Marrow demonstrates normal overall signal, without lesions to suggest metastases. IMPRESSION: PI-RADS 5 lesion in the left lateral peripheral zone of the mid gland. No evidence of extracapsular extension. No pelvic lymphadenopathy by size criteria. No aggressive osseous abnormality. Dictated by: Nasir Au M.D. on 12/11/2024 at 8:53 Approved by: Nasir Au M.D. on 12/11/2024 at 8:59
--- NOTE | 2024-12-10 14:16 | DI.US.S_ITS ---
PROCEDURE: US SCROTUM INDICATIONS: Elevated testosterone rule out Leydig cell tumor TECHNIQUE: Real-time scanning was performed of the scrotum and testicles, with image documentation. Color and pulse Doppler interrogation was performed of both testicles. COMPARISON: None. FINDINGS: Right: Testicle is normal in size at 4.0 x 2.2 x 3.4 cm, and homogenous in echotexture. Epididymis is normal in overall size and morphology. No hydrocele or varicoceles. Overlying scrotal skin is normal in thickness. Left: Testicle is normal in size at 4.9 x 1.0 x 2.9 cm, and heterogeneous in echotexture. Epididymis is normal in overall size and morphology. No hydrocele . Left-sided varicoceles are seen measures up to 2.8 mm in thickness. Overlying scrotal skin is normal in thickness. Doppler: Color and pulse Doppler demonstrate normal and symmetric arterial flow in both testicles. IMPRESSION: 1. No discrete testicular mass. No evidence of testicular torsion. Mildly heterogeneous left testicular parenchymal echotexture. 2. No hydrocele. Mild left-sided varicoceles as above. Dictated by: Sandor Mckay M.D. on 12/10/2024 at 17:47 Approved by: Sandor Mckay M.D. on 12/10/2024 at 17:48
== END ==
LOC: US 14:16
PROVIDERS: PCP Internal Medicine; Referring Provider Urology; Visit Provider Urology
DX: C61 Malignant neoplasm of prostate (principal); I86.1 Scrotal varices; N32.89 Other specified disorders of bladder; R79.89 Other specified abnormal findings of blood chemistry; R97.20 Elevated prostate specific antigen [PSA]
CPT/HCPCS: 72197; 76870; 93975; A9579

== ENCOUNTER → 2024-12-17 08:42 | Outpatient (CLI) | payer MEDICARE, OTHER, SELFPAY ==
[2024-12-17 10:00] LABS: Luteinizing Hormone 7.01 mIU/mL
[2024-12-17 10:11] LABS: Prostate Specific Antigen 11.3 ng/mL (0.10-4.00)
[2024-12-17 10:14] LABS: Estradiol, Total 29.4 pg/mL; Testosterone 902 ng/dL (71.8-623)
[2024-12-17 11:25] LABS: Follicle Stimulating Hormone 12.2 mIU/mL
== END ==
PROVIDERS: PCP Internal Medicine; Referring Provider Urology; Visit Provider Urology
DX: C61 Malignant neoplasm of prostate (principal); R79.89 Other specified abnormal findings of blood chemistry
CPT/HCPCS: 36415; 82670; 83001; 83002; 84153; 84270; 84403

== ENCOUNTER 2025-04-11 06:13 | Day surgery (SDC) | payer MEDICARE, OTHER, SELFPAY ==
[2025-04-07 15:00] VITALS: BMI 28.5
[2025-04-11 06:44] VITALS: BMI 28.7
[2025-04-11] MEDS: LACTATED RINGERS 1,000 ML 21 ML IV (07:08)
[2025-04-11 07:11] VITALS: BP 144/79; PULSE 63; RESP 16; TEMP 36.5; O2SAT 95
--- NOTE | 2025-04-11 07:37 | PM.PREOP ---
Pre-operative Note COVID-19 COVID-19 status: Not tested Interval Note History & Physical reviewed/Exam performed by Physician: Yes Changes to H&P: No
--- NOTE | 2025-04-11 07:49 | SUR.OPER ---
Lateral on stretcher, head on pillow, gel axillary roll to back for suport, bottom leg bent, upper leg straight and supported with pillows. Upper arm supported by pillows, lower arm bent at side.
[2025-04-11] MEDS: LIDOCAINE 1% 20 ML INJ (08:08)
[2025-04-11 08:18] VITALS: BP 107/59; PULSE 71; RESP 16; TEMP 37; O2SAT 94
[2025-04-11 08:23] VITALS: BP 106/60; PULSE 66; RESP 14; O2SAT 92
[2025-04-11 08:30] VITALS: BP 111/66; PULSE 66; RESP 14; O2SAT 95
--- NOTE | 2025-04-11 08:40 | PM.OP.1 ---
Operative Date/Time/Diagnoses Date of procedure: 04/11/25 Time of procedure: 08:00 Pre-op diagnosis: Elevated PSA Post-op diagnosis: same Procedure & Clinicians Procedure: Transrectal ultrasound guided prostate biopsy Same procedure(s) as scheduled: Yes Indications: 70 y/o M w/ h/o favorable intermediate-risk prostate cancer who is on active surveillance and has not had a repeat prostate biopsy in nearly 6 years now. He was previously intermittently having his PSA checked with Dr. Ríos. Discussed in detail that active surveillance currently entails: serial PSA/EUGENIA every 6 months, confirmatory biopsy within 12-18 months of original diagnosis, prostate MRI and a repeat prostate biopsy alternating every 18 months thereafter. If any of the aforementioned pieces of evaluation (PSA, EUGENIA, prostate MRI) are concerning, then a repeat prostate biopsy would come at an earlier interval. Discussed that his prostate MRI in November of 2024 was notable for an 86g gland and a 1.7cm PIRADS 5 lesion. Discussed that I would strongly recommend proceeding with a repeat TRUS prostate biopsy. Also discussed that a TRUS prostate biopsy may not always identify prostate cancer that is present as it is a small sampling of the prostate gland and small foci of cancer may be missed. Lastly, discussed that some men may require multiple biopsies over several years in order to properly diagnose their prostate cancer. Discussed the risks of the procedure to include but not limited to pain, bleeding, infection, blood in the stool for several weeks, blood and/or blood clots within the urine for several weeks as well as bloody ejaculate for several months. Up to 1-2% of men may get an infection from their biopsy that is severe enough that they require admission to the hospital and administration of IV antibiotics. To mitigate this risk, he will use an enema the night before and the morning of the procedure as well as take an antibiotic the morning before, the morning of and the morning after his biopsy. He would strongly prefer this to be performed under anesthesia. Surgeon: Bret Alvarado Click Yes if Unassisted: Yes Anesthesia Type: MAC +/- Operative Notes Findings: 87g gland Closure Type: not applicable Specimen(s): other (prostate biopsy) Applied: none Estimated Blood Loss (mL): 2 Blood products transfused: none Procedure in detail: Transrectal Ultrasound of the Prostate with Needle Biopsy: [id number] Indication: 70 y/o M w/ sh/o favorable intermediate-risk prostate cancer who is on active surveillance and in need of a repeat TRUS prostate biopsy Following informed consent and induction of MAC anesthesia, he was transitioned into the left lateral decubitus position. The ultrasound probe was then coated in lubrication and gently inserted into his rectum. A total of 10cc of 1% Lidocaine was used for local anesthetic throughout the procedure. Transrectal US images of his prostate were then performed and a volume of 87 cc was calculated. A total of 12 biopsies were taken from the prostate and submitted as six different pathologic specimens (right base, right mid, right apex, left base, left mid, left apex). An additional 3 biopsies were then taken from a PiRADS 5 lesion and submitted as lesion 1. Hemostasis was evaluated at the end of the procedure and noted to be excellent. He tolerated the procedure well without any complciations and the ultrasound probe was gently removed from his rectum. Complications: none Post-operative Condition: stable Disposition: PACU Plan for aftercare: Discharge home from PACU. Will return to Urology clinic in a few weeks to discuss his pathology results.
[2025-04-11 08:42] VITALS: BP 117/70; PULSE 64; RESP 16; TEMP 36.8; O2SAT 98
== END 2025-04-11 08:58 | disposition home or self-care (01) ==
PROVIDERS: PCP Internal Medicine; Referring Provider Urology; Visit Provider Urology
PROC: 0VJ43ZZ Inspection of Prostate and Seminal Vesicles, Percutaneous Approach (ICD-10-PCS; CPT 55876; principal; 2025-04-11 07:45)
DX: C61 Malignant neoplasm of prostate (principal)
CPT/HCPCS: 55700; 76872; 76942; 82962; J2704; J3010

== ENCOUNTER → 2025-07-28 08:02 | Outpatient (CLI) | payer MEDICARE, OTHER, SELFPAY | PROVIDERS: PCP Internal Medicine; Visit Provider Urology | DX: R39.9 Unspecified symptoms and signs involving the genitourinary system (principal) | CPT/HCPCS: 87086 ==

== ENCOUNTER → 2025-07-30 08:45 | Outpatient (CLI) | payer MEDICARE, OTHER, SELFPAY ==
[2025-07-30 09:47] LABS: Add Manual Diff / Slide Review NO; Hematocrit 45.6 % (41-53); Hemoglobin 15.6 g/dL (13.5-17.5); Lymphocytes Absolute Auto 1200 /uL (1100-4500); Mean Corpuscular HGB Conc 34.2 % (30-36); Mean Corpuscular Hemoglobin 29.0 PG (26-34); Mean Corpuscular Volume 84.7 fL (80-100); Platelet Count 127 X10^3/uL (150-400)
[2025-07-30 10:05] LABS: Hemoglobin A1C% w Est Avg Glu 6.2 % (4.0-6.0)
[2025-07-30 10:21] LABS: Alanine Aminotransferase 81 IU/L (<50); Albumin 4.7 g/dL (3.5-5.0); Albumin Globulin Ratio 2.0 (1.0-2.8); Alkaline Phosphatase 62 U/L (38-126); Blood Urea Nitrogen 19 mg/dL (9-20); Calcium 9.8 mg/dL (8.4-10.2); Carbon Dioxide 30 mmol/L (22-32); Chloride 100 mmol/L (98-107); Cholesterol 165 mg/dL (140-199); Estimated Glomerular Filt Rate > 60 mL/min (>60); Globulin 2.3 g/dL (1.7-4.1); Glucose 149 mg/dL (70-99); HDL Cholesterol 64 mg/dL (40-60); HEMOLYSIS < 15 (0-50); Potassium 4.2 mmol/L (3.4-5.1); Sodium 138 mmol/L (137-145); Total Protein 7.0 g/dL (6.3-8.2); Triglycerides 225 mg/dL (35-150); VLDL Cholesterol Calculated 45 mg/dL (2-30)
[2025-07-30 10:33] LABS: Free T3, Triiodothyronine Free 3.65 pg/mL (2.77-5.27)
[2025-07-30 10:47] LABS: Thyroid Stimulating Hormone 1.63 uIU/mL (0.47-4.68)
[2025-07-30 11:03] LABS: Microalbumi Creatinin Ratio Ur 16.0 ug/mg CR (<30)
[2025-07-31 07:09] LABS: Insulin Level Total 49.6 uIU/mL (2.6-24.9)
== END ==
LOC: LAB 08:50
PROVIDERS: PCP Internal Medicine; Referring Provider Internal Medicine; Visit Provider Internal Medicine
DX: E03.9 Hypothyroidism, unspecified (principal); E11.59 Type 2 diabetes mellitus with other circulatory complications; E78.5 Hyperlipidemia, unspecified; E11.65 Type 2 diabetes mellitus with hyperglycemia; E11.69 Type 2 diabetes mellitus with other specified complication; I15.2 Hypertension secondary to endocrine disorders
CPT/HCPCS: 36415; 80053; 80061; 82043; 82570; 83036; 83525; 83695; 84443; 84481; 85025

== ENCOUNTER 2025-08-01 07:56 | Day surgery (SDC) | payer MEDICARE, OTHER, SELFPAY ==
[2025-07-25 14:00] VITALS: BMI 28.3
[2025-08-01] VITALS (10 sets, daily range): BP systolic 90–148; BP diastolic 50–79; PULSE 60–71; RESP 12–20; TEMP 36.2–36.9; O2SAT 95–98
--- NOTE | 2025-08-01 08:58 | PM.PREOP ---
Pre-operative Note COVID-19 COVID-19 status: Not tested Interval Note History & Physical reviewed/Exam performed by Physician: Yes Changes to H&P: No
[2025-08-01] MEDS: LACTATED RINGERS 1,000 ML 21 ML IV (08:59)
--- NOTE | 2025-08-01 09:35 | SUR.OPER ---
left lateral position on stretcher
[2025-08-01] MEDS: LIDOCAINE 1% 20 ML INJ (09:38)
--- NOTE | 2025-08-01 09:54 | PM.OP.1 ---
Operative Date/Time/Diagnoses Date of procedure: 08/01/25 Time of procedure: 09:30 Pre-op diagnosis: Prostate cancer Post-op diagnosis: same Procedure & Clinicians Procedure: Transrectal US guided gold seed marker placement in the prostate Same procedure(s) as scheduled: Yes Indications: 70 y/o M w/ h/o favorable intermediate-risk prostate cancer who was on active surveillance and had a repeat TRUS prostate biopsy in Mar that was notable for progression to high-risk prostate cancer. Discussed in detail that active surveillance currently entails: serial PSA/EUGENIA every 6 months, confirmatory biopsy within 12-18 months of original diagnosis, prostate MRI and a repeat prostate biopsy alternating every 18 months thereafter. If any of the aforementioned pieces of evaluation (PSA, EUGENIA, prostate MRI) are concerning, then a repeat prostate biopsy would come at an earlier interval. Discussed treatment options to include a radical prostatectomy vs XRT with likely ADT. He had a second opinion at [facility] and also met with Radiation Oncology and has decided to move forward with XRT and ADT. Discussed the need for GSM placement. Discussed the risks of the procedure to include but not limited to pain, bleeding, infection, blood in the stool for several weeks, blood and/or blood clots within the urine for several weeks as well as bloody ejaculate for several months. Up to 1-2% of men may get an infection from their biopsy that is severe enough that they require admission to the hospital and administration of IV antibiotics. To mitigate this risk, he will use a bowel prep the night before and the morning of the procedure as well as take an antibiotic the morning before, the morning of and the morning after his biopsy. He would prefer to have this performed under anesthesia. Surgeon: Bret Alvarado Assisted?: No Anesthesia Type: MAC +/- Operative Notes Findings: 86g prostate, successful placement of gold seed markers Closure Type: not applicable Specimen(s): none sent Applied: none Estimated Blood Loss (mL): 2 Blood products transfused: none Procedure in detail: Transrectal Ultrasound of the Prostate with Gold Seed Marker Placement: [id number] Indication: 70 y/o M w/ favorable intermediate-risk prostate cancer who returns today for his Gold Seed Marker placement. Following informed consent, he was transitioned into the left lateral decubitus position. The ultrasound probe was then coated in lubrication and gently inserted into his rectum. A total of 10cc of 1% Lidocaine was used for local anesthetic throughout the procedure. Transrectal US images of his prostate were then performed. A Gold Seed Marker was then placed in the right base of his gland, the left mid of his gland and the right apex of his gland. Hemostasis was evaluated at the end of the procedure and noted to be excellent. He tolerated the procedure well without any complications and the ultrasound probe was gently removed from his rectum. Complications: none Post-operative Condition: stable Disposition: PACU Plan for aftercare: Discharge home from PACU. Will return to Urology clinic in 3 months for a PSA and Eligard injection (already scheduled).
== END 2025-08-01 10:49 | disposition home or self-care (01) ==
PROVIDERS: PCP Internal Medicine; Referring Provider Urology; Visit Provider Urology
PROC: 0VJ43ZZ Inspection of Prostate and Seminal Vesicles, Percutaneous Approach (ICD-10-PCS; CPT 55876; principal; 2025-08-01 09:15)
DX: C61 Malignant neoplasm of prostate (principal)
CPT/HCPCS: 55876; 76942; 82962; A4648; J2704; J7120